=== PATIENT | male | born 1970 | race Caucasian/White ===

== ENCOUNTER 2016-02-22 19:43 | Inpatient (IN) | payer MEDICAID ==
[~2016-02-22] VITALS: Ht 170.2 cm; Wt 78.3 kg
[2016-02-22] MEDS ORDERED: ALU/MAG/SIM 30 ML UDC PO PRN (19:50)
[2016-02-22] MEDS ORDERED: LORAZEPAM 2 MG TAB PO PRN (19:50)
[2016-02-22] MEDS ORDERED: HALOPERIDOL 5 MG TAB PO PRN (19:50)
[2016-02-22] MEDS ORDERED: LORAZEPAM 2 MG/ML VIAL IM PRN (19:50)
[2016-02-22] MEDS ORDERED: MAG HYDROX 30 ML UDC PO PRN (19:50)
[2016-02-22] MEDS ORDERED: HALOPERIDOL 5 MG/ML VIAL IM PRN (19:50)
[2016-02-22] MEDS ORDERED: DIPHENHYDRAMINE 50 MG/ML VIAL IM PRN (19:50)
[2016-02-22] MEDS ORDERED: DIPHENHYDRAMINE 50 MG CAP PO PRN (19:50)
[2016-02-22] MEDS ORDERED: ACETAMINOPHEN 325 MG TAB PO PRN (19:50)
[2016-02-22] MEDS: MULTIVITS/MINERALS (THERAGRAN M) TAB PO SCH (20:05)
[2016-02-22 20:42] VITALS: BP_SYST 148; RESP 18
[2016-02-22 20:57] VITALS: Ht 170.2 cm; Wt 78.3 kg
[2016-02-23] MEDS: TRAZODONE 50 MG TAB PO PRN (00:46)
[2016-02-23] MEDS: NICOTINE 21 MG/24 HR TRANSDERM SCH (10:00)
[2016-02-23] MEDS: MULTIVITS/MINERALS (THERAGRAN M) TAB PO SCH (10:00)
[2016-02-23] MEDS: DULoxetine 30 MG CAP PO SCH (13:00)
[2016-02-23 13:46] VITALS: BP_SYST 118; RESP 16; TEMP 98.3
[2016-02-23 19:08] VITALS: BP_SYST 120; RESP 16; TEMP 98
[2016-02-24 07:00] VITALS: BP_SYST 118; RESP 16; TEMP 98.2
[2016-02-24] MEDS: DULoxetine 30 MG CAP PO SCH ×2 (09:00→12:05)
[2016-02-24] MEDS: NICOTINE 21 MG/24 HR TRANSDERM SCH (09:00)
[2016-02-24] MEDS: MULTIVITS/MINERALS (THERAGRAN M) TAB PO SCH (09:10)
[2016-02-25] MEDS: NICOTINE 21 MG/24 HR TRANSDERM SCH (09:00)
[2016-02-25] MEDS: MULTIVITS/MINERALS (THERAGRAN M) TAB PO SCH (09:18)
[2016-02-25] MEDS: DULoxetine 30 MG CAP PO SCH (09:19)
[2016-02-25 11:11] VITALS: BP_SYST 109; RESP 20; TEMP 98.6
[2016-02-25] MEDS: METHOCARBAMOL 750 MG TAB PO SCH ×2 (15:56→21:56)
[2016-02-25] MEDS: NAPROXEN 375 MG TAB PO SCH (16:00)
[2016-02-25 19:00] VITALS: BP_SYST 121; RESP 18; TEMP 98.7
[2016-02-25] MEDS: TRAZODONE 50 MG TAB PO PRN (21:40)
[2016-02-25] MEDS: risperiDONE 3 MG TAB PO SCH (21:56)
[2016-02-25] MEDS: PANTOPRAZOLE 40 MG TAB PO SCH (21:56)
[2016-02-26] MEDS: METHOCARBAMOL 750 MG TAB PO SCH ×3 (08:47→21:38)
[2016-02-26] MEDS: MULTIVITS/MINERALS (THERAGRAN M) TAB PO SCH (08:47)
[2016-02-26] MEDS: NAPROXEN 375 MG TAB PO SCH ×3 (08:47→16:42)
[2016-02-26] MEDS: NICOTINE 21 MG/24 HR TRANSDERM SCH (08:48)
[2016-02-26] MEDS: DULoxetine 30 MG CAP PO SCH (08:48)
[2016-02-26 09:04] VITALS: BP_SYST 102; RESP 18; TEMP 97.5
[2016-02-26 19:16] VITALS: BP_SYST 106; RESP 18; TEMP 99
[2016-02-26] MEDS: PANTOPRAZOLE 40 MG TAB PO SCH (21:38)
[2016-02-26] MEDS: risperiDONE 3 MG TAB PO SCH (21:38)
[2016-02-27 08:56] VITALS: BP_SYST 110; RESP 18; TEMP 98.3
[2016-02-27] MEDS: NICOTINE 21 MG/24 HR TRANSDERM SCH (09:00)
[2016-02-27] MEDS: METHOCARBAMOL 750 MG TAB PO SCH ×2 (09:00→16:00)
[2016-02-27 09:07] VITALS: BP_SYST 110; RESP 18; TEMP 98.3
[2016-02-27] MEDS: MULTIVITS/MINERALS (THERAGRAN M) TAB PO SCH (09:30)
[2016-02-27] MEDS: NAPROXEN 375 MG TAB PO SCH ×2 (09:30→12:11)
[2016-02-27] MEDS: DULoxetine 30 MG CAP PO SCH (09:40)
[2016-02-27 12:04] VITALS: BP_SYST 110; RESP 18; TEMP 98.3
== END 2016-02-27 13:55 | disposition home or self-care (01) | DRG 897 ==
LOC: PSY 19:50
PROVIDERS: ADMIT Psychiatry & Neurology Psychiatry; ATTEND Psychiatry & Neurology Psychiatry
DX: F15.159 Other stimulant abuse with stimulant-induced psychotic disorder, unspecified (principal); M54.9 Dorsalgia, unspecified; Z72.0 Tobacco use
CPT/HCPCS: 80053; 80307; 80320; 81003; 84439; 84443; 85025; 99222; 99231